=== PATIENT | male | born 1980 | race Caucasian/White ===

== ENCOUNTER 2020-06-17 12:04 | Emergency (ER) | payer OTHER ==
[~2020-06-17] VITALS: Ht 177.8 cm; Wt 78.9 kg
[2020-06-17] MEDS ORDERED: ADDERALL 20 MG20 MG PO (12:28)
[2020-06-17] MEDS ORDERED: VALIUM5 MG PO (12:30)
[2020-06-17] MEDS ORDERED: ROXICODONE30 MG PO (12:30)
[2020-06-17 12:33] LABS: ABSOLUTE NEUTROPHILS 5.6 thou/uL (1.4-8.2); BASOPHILS 0.5 % (0.0-2.0); EOSINOPHILS 0.5 % (0.0-3.0); HEMATOCRIT 46.5 % (42.0-52.0); HEMOGLOBIN 16.1 gm/dL (14.0-18.0); LYMPHOCYTES 14.5 % (24.0-44.0); MCH 29.5 pg (26.0-34.0); MCHC 34.6 g/dL (28.0-37.0); MCV 85.4 fL (80.0-100.0); MONOCYTES 3.8 % (1.0-8.0); PLATELET COUNT 301 thou/uL (150-400); POLYS 80.7 % (36.0-66.0); RBC 5.45 mil/uL (4.50-6.00); RDW 13.9 % (10.5-14.5)
[2020-06-17 12:37] LABS: CALCIUM 9.8 mg/dL (8.5-10.1); CREATININE 1.1 mg/dL (0.7-1.3); POTASSIUM 3.5 mmol/L (3.5-5.1)
[2020-06-17 12:42] LABS: APTT 31.5 Seconds (24.5-32.8); INR 1.2; PROTIME 11.9 Seconds (9.3-11.4)
[2020-06-17 12:44] LABS: ALBUMIN 4.5 g/dL (3.4-5.0); DIRECT BILIRUBIN 0.2 mg/dL (<0.1-0.2); TOTAL BILIRUBIN 1.1 mg/dL (0.2-1.0); TOTAL PROTEIN 9.1 g/dL (6.4-8.2)
[2020-06-17 14:49] LABS: URINE BILIRUBIN NEGATIVE (Negative); URINE BLOOD NEGATIVE (Negative); URINE CLARITY CLEAR; URINE COLOR YELLOW; URINE GLUCOSE-RANDOM* NEGATIVE (Negative); URINE KETONES TRACE (Negative); URINE LEUKOCYTES-REFLEX NEGATIVE (Negative); URINE NITRITE-REFLEX NEGATIVE (Negative); URINE PROTEIN (DIPSTICK) NEGATIVE (Negative); URINE SPECIFIC GRAVITY <= 1.005 (1.005-1.035)
[2020-06-17 14:57] LABS: BACTERIA-REFLEX 1-9 Few /HPF (None Seen); CASTS None Seen /LPF (None Seen); CRYSTALS None Seen /LPF (None Seen); SQUAMOUS None Seen /LPF (0-3); URINE RBC None Seen /HPF (0-2); URINE WBC-REFLEX None Seen /HPF (0-5)
[2020-06-17] MEDS ORDERED: MOBIC15 MG PO (15:25)
[2020-06-17] MEDS ORDERED: ZOFRAN ODT4 MG PO (15:27)
[2020-06-17 15:35] VITALS: BP 122/72
== END 2020-06-17 15:36 | disposition home or self-care (01) ==
LOC: ER 12:04
PROVIDERS: Emergency Medicine
DX: S00.81XA Abrasion of other part of head, initial encounter (principal); T14.8XXA Other injury of unspecified body region, initial encounter; F11.90 Opioid use, unspecified, uncomplicated; R07.89 Other chest pain; M25.552 Pain in left hip; M25.551 Pain in right hip; R07.81 Pleurodynia; R10.9 Unspecified abdominal pain; M54.5 Low back pain; M54.2 Cervicalgia; R11.10 Vomiting, unspecified; R20.0 Anesthesia of skin; Z79.899 Other long term (current) drug therapy; Z88.8 Allergy status to other drugs, medicaments and biological substances; V86.59XA Driver of other special all-terrain or other off-road motor vehicle injured in nontraffic accident, initial encounter; Y93.I9 Activity, other involving external motion; Y92.488 Other paved roadways as the place of occurrence of the external cause; Y99.8 Other external cause status